=== PATIENT | male | born 1985 | race Caucasian/White ===

== ENCOUNTER 2017-01-15 21:16 | Emergency (ER) | payer MEDICAID, OTHER ==
[2017-01-15 21:28] VITALS: BP 160/107
[2017-01-15] MEDS ORDERED: Alum Hydrox/Mag Hydrox/Simeth 30 ML, Lidocaine 2% 15 ML PO ONE ×2 (21:57)
--- NOTE | 2017-01-15 22:05 | EDM.PDOC ---
ED HPI GENERAL MEDICAL PROBLEM - General Chief Complaint: Chest Pain Stated Complaint: [facility] Time Seen by Provider: 01/15/17 21:47 Source of Information: Reports: Patient History Limitations: Reports: No Limitations - History of Present Illness INITIAL COMMENTS - FREE TEXT/NARRATIVE: patient is a 31-year-old male who presents to the ED complaining of chest pain located just right of the lower sternal border. Patient states this pain has been coming about on and off for the past few months. States it waxes and wanes in intensity with really no clear provocation. States today when he was getting into the ambulance experience extreme pain rated 8 out of 10 to this location that took his breath away. Has noted shortness of breath with exertion as of recent. Pain is described as achy/pressure/sharp sensation rated 3 out of 10 with admission to the ED. He did take ibuprofen along with aspirin 324 mg. EKG was obtained indicating questionable inferior ischemia.Patient took one nitroglycerin spray that did not alleviate the symptoms. Of note patient has pain between his shoulder blades that has been present for the past few months. States he has has a history of back issues and relates the discomfort to that. Patient is mildly nauseated with no emesis. Denies presyncope or syncopal episode, diaphoresis, acid reflux, abdominal pain, leg swelling, or hx of DVT/ PE. He has no past medical history is currently taking no medications. Surgical history noncontributory. Patient does not smoke or utilize recreational drugs. Consumes alcohol on a social basis. He has first-degree relatives with heart disease. 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 Denies: Wheezing, Cough, Sputum Cardiovascular: Reports: Chest Pain (substernal chest pain). Denies: Dyspnea on Exertion, Palpitations, Syncope GI/Abdominal: Reports: Nausea. Denies: Abdominal Pain, Constipation, Diarrhea, Vomiting Musculoskeletal: Reports: Back Pain (between the shoulder blades). Denies: Leg Pain Neurological: Reports: Dizziness (intermittent) Psychiatric: Reports: Anxiety ED EXAM, GENERAL - Physical Exam Exam: See Below Exam Limited By: No Limitations General Appearance: Alert, WD/WN, Anxious Ears: Hearing Grossly Normal Nose: Normal Inspection Throat/Mouth: Normal Voice, No Airway Compromise Head: Atraumatic, Normocephalic Neck: Normal Inspection, Supple, Full Range of Motion Respiratory/Chest: No Respiratory Distress, Lungs Clear, Normal Breath Sounds, No Accessory Muscle Use, Chest Non-Tender Cardiovascular: Normal Peripheral Pulses, Regular Rate, Rhythm, No Murmur Peripheral Pulses: 2+: Radial (L) GI/Abdominal: Normal Bowel Sounds, Soft, Non-Tender, No Organomegaly, No Distention Back Exam: Normal Inspection. No: Paraspinal Tenderness, Vertebral Tenderness Extremities: Normal Inspection, Normal Range of Motion, Non-Tender Neurological: Alert, Oriented, CN II-XII Intact, Normal Cognition, No Motor/ Sensory Deficits Psychiatric: Normal Affect, Normal Mood Skin Exam: Warm, Dry, Intact, Normal Color Course - Vital Signs Last Recorded V/S: Last Vital Signs Temp 99.4 F 01/15/17 21:19 Pulse 101 H 01/15/17 21:19 Resp 17 01/15/17 21:19 BP 160/107 H 01/15/17 21:19 Pulse Ox 96 01/15/17 21:19 - Orders/Labs/Meds Orders: Active Orders 24 hr Category Date Time Status EKG Documentation Completion [RC] STAT Care 01/15/17 21:45 Active Labs: Laboratory Tests 01/15/17 01/15/17 01/15/17 Range/Units 21:37 21:37 21:57 WBC 11.67 H (4.23-9.07) K/mm3 RBC 5.24 (4.63-6.08) M/mm3 Hgb 15.4 (13.7-17.5) gm/L Hct 44.6 (40.1-51.0) % MCV 85.1 (79.0-92.2) fl MCH 29.4 (25.7-32.2) pg MCHC 34.5 (32.2-35.5) g/dl RDW Std Deviation 41.2 (35.1-43.9) fL Plt Count 345 H (163-337) K/mm3 MPV 10.3 (9.4-12.3) fl Neut % (Auto) 67.4 (34.0-67.9) % Lymph % (Auto) 23.7 (21.8-53.1) % [place] % (Auto) 6.9 (5.3-12.2) % Eos % (Auto) 1.1 (0.8-7.0) Baso % (Auto) 0.6 (0.1-1.2) % Neut # (Auto) 7.86 H (1.78-5.38) K/mm3 Lymph # (Auto) 2.77 (1.32-3.57) K/mm3 [place] # (Auto) 0.80 (0.30-0.82) K/mm3 Eos # (Auto) 0.13 (0.04-0.54) K/mm3 Baso # (Auto) 0.07 (0.01-0.08) K/mm3 D-Dimer, Quantitative (0.19-0.59) mg/L Sodium 139 (136-145) mEq/L Potassium 3.6 (3.5-5.1) mEq/L Chloride 103 (98-107) mEq/L Carbon Dioxide 27 (21-32) mEq/L Anion Gap 12.6 (5-15) BUN 12 (7-18) mg/dL Creatinine 1.1 (0.7-1.3) mg/dL Est Cr Clr Drug Dosing 106.80 mL/min Estimated GFR (MDRD) > 60 (>60) mL/min BUN/Creatinine Ratio 10.9 L (14-18) Glucose 113 H (74-106) mg/dL Calcium 9.4 (8.5-10.1) mg/dL Total Bilirubin 0.4 (0.2-1.0) mg/dL AST 20 (15-37) U/L ALT 42 (16-63) U/L Alkaline Phosphatase 97 (46-116) U/L Troponin I < 0.017 (0.00-0.056) ng/mL C-Reactive Protein 1.1 H* (<1.0) mg/dL Total Protein 7.8 (6.4-8.2) g/dl Albumin 4.2 (3.4-5.0) g/dl Globulin 3.6 gm/dL Albumin/Globulin Ratio 1.2 (1-2) /11/26 Range/Units 22:19 WBC (4.23-9.07) K/mm3 RBC (4.63-6.08) M/mm3 Hgb (13.7-17.5) gm/L Hct (40.1-51.0) % MCV (79.0-92.2) fl MCH (25.7-32.2) pg MCHC (32.2-35.5) g/dl RDW Std Deviation (35.1-43.9) fL Plt Count (163-337) K/mm3 MPV (9.4-12.3) fl Neut % (Auto) (34.0-67.9) % Lymph % (Auto) (21.8-53.1) % [place] % (Auto) (5.3-12.2) % Eos % (Auto) (0.8-7.0) Baso % (Auto) (0.1-1.2) % Neut # (Auto) (1.78-5.38) K/mm3 Lymph # (Auto) (1.32-3.57) K/mm3 [place] # (Auto) (0.30-0.82) K/mm3 Eos # (Auto) (0.04-0.54) K/mm3 Baso # (Auto) (0.01-0.08) K/mm3 D-Dimer, Quantitative < 0.19 L (0.19-0.59) mg/L Sodium (136-145) mEq/L Potassium (3.5-5.1) mEq/L Chloride (98-107) mEq/L Carbon Dioxide (21-32) mEq/L Anion Gap (5-15) BUN (7-18) mg/dL Creatinine (0.7-1.3) mg/dL Est Cr Clr Drug Dosing mL/min Estimated GFR (MDRD) (>60) mL/min BUN/Creatinine Ratio (14-18) Glucose (74-106) mg/dL Calcium (8.5-10.1) mg/dL Total Bilirubin (0.2-1.0) mg/dL AST (15-37) U/L ALT (16-63) U/L Alkaline Phosphatase (46-116) U/L Troponin I (0.00-0.056) ng/mL C-Reactive Protein (<1.0) mg/dL Total Protein (6.4-8.2) g/dl Albumin (3.4-5.0) g/dl Globulin gm/dL Albumin/Globulin Ratio (1-2) Meds: Medications Discontinued Medications Generic Name Dose Route Start Last Admin Trade Name Freq PRN Reason Stop Dose Admin Al Hydroxide/Mg Hydroxide 30 0 ml 01/15/17 21:57 01/15/17 22:05 ml/ Lidocaine HCl 15 ml PO 01/15/17 21:58 45 ml ONETIME ONE Administration - Re-Assessments/Exams Free Text/Narrative Re-Assessment/Exam: IV established. Ordered GI cocktail. initial labs and studies include CBC, chem 14, d-dimer, troponin, and chest x-ray one view. 01/15/17 22:04 EKG sinus rhythm at a rate is 82 with normal P axis. No acute ST changes noted. Patient had minimal relief with the GI cocktail. CXR revealed cardiomegaly with possible pericardial effusion. 01/15/17 22:43 Obtained bedside ultrasound of the heart to evaluate for pericardial effusion by Dr. Turner. Patient had no signs of pericardial effusion present. 01/15/17 22:46 Labs reviewed: White blood cell count 11.67, hemoglobin 17.4, platelet count 345, sodium 139, potassium 3.6, creatinine 1.1, glucose 113, CRP 1.1, troponin < 0.017, and d-dimer was within normal limits. Discomfort has minimized. He is ready to be discharged home. Will discharge patient home with instructions as documented for atypical chest pain. Departure - Departure Time of Disposition: 22:47 Disposition: Home, Self-Care 01 Condition: Good Clinical Impression: Atypical chest pain Instructions: Nonspecific Chest Pain, [id number] Referrals: Jaxon Ham [Physician] - Forms: ED Department Discharge, ED Return to Work/School Form Additional Instructions: Unclear etiology of current complaint. Troponin, d-dimer, and EKG did not elicit any concerning findings. CRP which is a nonspecific inflammatory marker was mildly elevated. Will have you take ibuprofen 600mg every 6 hours for the next 2 wks to see if this resolves any discomfort. Suggest taking ibuprofen with food and drink plenty of water. Will have you take prilosec 20mg 1/2 hr prior to breakfast everyday while taking the ibuprofen. Followup with Dr. Lopez in 1 to 2 wks. Return to the E.D. for any new or worsening symptoms. - My Orders Last 24 Hours: My Active Orders 01/15/17 21:45 EKG Documentation Completion [RC] STAT - Assessment/Plan Last 24 Hours: My Active Orders 01/15/17 21:45 EKG Documentation Completion [RC] STAT
--- NOTE | 2017-01-16 08:38 | CR ---
Chest: Portable view of the chest was obtained. Comparison: No previous study. Heart size and mediastinum are normal. Lungs are clear. Bony structures are grossly intact. Impression: 1. Nothing acute is identified on portable chest x-ray. Diagnostic code #1.
== END 2017-01-15 23:03 | disposition home or self-care (01) ==
LOC: JD.ED 21:16
DX: R07.89 Other chest pain (principal)
CPT/HCPCS: 36415; 71010; 80053; 84484; 85025; 85379; 86140; 93005; 99285; A9270; 99284

== ENCOUNTER 2017-07-29 22:41 | Emergency (ER) | payer OTHER ==
--- NOTE | 2017-07-29 23:07 | EDM.PDOC ---
ED HPI GENERAL MEDICAL PROBLEM - General Chief Complaint: Chest Pain Stated Complaint: [facility] Time Seen by Provider: 07/29/17 22:50 Source of Information: Reports: Patient History Limitations: Reports: No Limitations - History of Present Illness INITIAL COMMENTS - FREE TEXT/NARRATIVE: The patient states that he developed left-sided chest pain, crampy and pressure in character, around 19:00 this evening, while sitting. It came on gradually. It has been constant. It is more of a discomfort than a pain. He feels better if he is sitting, worse if he is active. He has associated dyspnea, nausea, and significant anxiety, but no diaphoresis. He states that he has had similar discomfort, perhaps 20 times over the past 2 years. He states he underwent a Cardiolite stress test around 3 months ago, and believes that he failed the test, but his Public Works Technician, Dr. Bang, felt that the results were erroneous, and recommended that the patient lose weight (according to the patient). The patient did not undergo a coronary angiogram. The patient does not have a PCP. Chest Pain Score (Numeric/FACES): 3 - Related Data Allergies Allergy/AdvReac Type Severity Reaction Status Date / Time No Known Allergies Allergy Verified 07/29/17 22:45 Home Meds: Home Meds . 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) - Past Surgical History Head Surgeries/Procedures: Reports: Other (See Below) (Excision of fibrous dysplasia tumor, left frontal sinus, Jul 2006, at [place]) HEENT Surgical History: Reports: Oral Surgery ([place] teeth extraction) Musculoskeletal Surgical History: Reports: Other (See Below) (Right hand pinning Mar 2006) Social & Family History - Tobacco Use Smoking Status *Q: Former Smoker Years of Tobacco use: 6 Packs/Tins Daily: 1.5 Month Tobacco Last Used: Quit 2010 Second Hand Smoke Exposure: No - Caffeine Use Caffeine Use: Reports: Coffee - Alcohol Use Alcohol Use History: Yes Alcohol Use Frequency: Socially - Recreational Drug Use Recreational Drug Use: No - Living Situation & Occupation Living situation: Reports: Single, with Family (Nephew) Occupation: Employed ([employer]) ED ROS GENERAL - Review of Systems Review Of Systems: ROS reveals no pertinent complaints other than HPI. ED EXAM, GENERAL - Physical Exam Exam: See Below Exam Limited By: No Limitations General Appearance: Alert, WD/WN, Anxious Eye Exam: Bilateral Eye: Normal Inspection Ears: Normal External Exam, Hearing Grossly Normal Nose: Normal Inspection, No Blood Throat/Mouth: Normal Inspection, Normal Lips, Normal Voice, No Airway Compromise Head: Atraumatic, Normocephalic Neck: Normal Inspection, Full Range of Motion Respiratory/Chest: No Respiratory Distress, Lungs Clear, Normal Breath Sounds, No Accessory Muscle Use, Chest Non-Tender (including to area of pain) Cardiovascular: Normal Peripheral Pulses, No Edema, No Gallop, No JVD, No Murmur , No Rub, Tachycardia (regular) Peripheral Pulses: 4+: Radial (L), Radial (R) GI/Abdominal: Normal Bowel Sounds, Soft, Non-Tender, No Organomegaly, No Distention, No Abnormal Bruit, No Mass, Other (Obese) (Male) Exam: Deferred Rectal (Males) Exam: Deferred Back Exam: Normal Inspection, Full Range of Motion, NT Extremities: Normal Inspection, Normal Range of Motion, No Pedal Edema, Normal Capillary Refill Neurological: Alert, Oriented, Normal Cognition, No Motor/Sensory Deficits Psychiatric: Anxious Skin Exam: Warm, Dry, Intact, Normal Color, No Rash EKG INTERPRETATION EKG Date: 07/29/17 Time: 22:44 Rhythm: Other (Sinus tachycardia) Rate (Beats/Min): 100 Stem: Normal P-Wave: Present QRS: Normal ST-T: Depressed (Posterolateral) QT: Normal Comparison: No Change (01/15/2017) Course - Vital Signs Last Recorded V/S: Last Vital Signs Temp 36.8 C 07/29/17 22:42 Pulse 85 07/30/17 02:27 Resp 18 07/30/17 02:27 BP 148/88 H 07/30/17 02:27 Pulse Ox 98 07/30/17 02:27 - Orders/Labs/Meds Orders: Active Orders 24 hr Category Date Time Status EKG Documentation Completion [RC] ASDIRECTED Care 07/29/17 22:53 Active EKG Documentation Completion [RC] ASDIRECTED Care 07/30/17 01:35 Active Chest 1V Frontal [CR] Stat Exams 07/29/17 22:52 Taken EKG 12 Lead [EK] Stat Ther 07/29/17 22:53 Ordered EKG 12 Lead [EK] Stat Ther 07/30/17 01:35 Ordered Labs: Laboratory Tests 07/29/17 07/29/17 07/29/17 Range/Units 22:54 22:54 22:54 WBC 11.91 H (4.23-9.07) K/mm3 RBC 5.23 (4.63-6.08) M/mm3 Hgb 14.9 (13.7-17.5) gm/L Hct 44.2 (40.1-51.0) % MCV 84.5 (79.0-92.2) fl MCH 28.5 (25.7-32.2) pg MCHC 33.7 (32.2-35.5) g/dl RDW Std Deviation 41.1 (35.1-43.9) fL Plt Count 355 H (163-337) K/mm3 MPV 9.9 (9.4-12.3) fl Neut % (Auto) 64.6 (34.0-67.9) % Lymph % (Auto) 24.7 (21.8-53.1) % [place] % (Auto) 8.3 (5.3-12.2) % Eos % (Auto) 1.6 (0.8-7.0) Baso % (Auto) 0.6 (0.1-1.2) % Neut # (Auto) 7.70 H (1.78-5.38) K/mm3 Lymph # (Auto) 2.94 (1.32-3.57) K/mm3 [place] # (Auto) 0.99 H (0.30-0.82) K/mm3 Eos # (Auto) 0.19 (0.04-0.54) K/mm3 Baso # (Auto) 0.07 (0.01-0.08) K/mm3 PT 10.8 (8.0-13.0) SECONDS INR 0.99 APTT 26 (22-36) SECONDS D-Dimer, Quantitative < 0.19 L (0.19-0.59) mg/L Sodium 140 (136-145) mEq/L Potassium 3.4 L (3.5-5.1) mEq/L Chloride 105 (98-107) mEq/L Carbon Dioxide 25 (21-32) mEq/L Anion Gap 13.4 (5-15) BUN 14 (7-18) mg/dL Creatinine 1.2 (0.7-1.3) mg/dL Est Cr Clr Drug Dosing 97.90 mL/min Estimated GFR (MDRD) > 60 (>60) mL/min BUN/Creatinine Ratio 11.7 L (14-18) Glucose 105 (74-106) mg/dL Calcium 8.7 (8.5-10.1) mg/dL Total Bilirubin 0.2 (0.2-1.0) mg/dL AST 31 (15-37) U/L ALT 71 H (16-63) U/L Alkaline Phosphatase 110 (46-116) U/L Troponin I < 0.017 (0.00-0.056) ng/mL NT-Pro-B Natriuret Pep (0-125) pg/mL Total Protein 7.3 (6.4-8.2) g/dl Albumin 3.7 (3.4-5.0) g/dl Globulin 3.6 gm/dL Albumin/Globulin Ratio 1.0 (1-2) 07/29/17 Range/Units 22:54 WBC (4.23-9.07) K/mm3 RBC (4.63-6.08) M/mm3 Hgb (13.7-17.5) gm/L Hct (40.1-51.0) % MCV (79.0-92.2) fl MCH (25.7-32.2) pg MCHC (32.2-35.5) g/dl RDW Std Deviation (35.1-43.9) fL Plt Count (163-337) K/mm3 MPV (9.4-12.3) fl Neut % (Auto) (34.0-67.9) % Lymph % (Auto) (21.8-53.1) % [place] % (Auto) (5.3-12.2) % Eos % (Auto) (0.8-7.0) Baso % (Auto) (0.1-1.2) % Neut # (Auto) (1.78-5.38) K/mm3 Lymph # (Auto) (1.32-3.57) K/mm3 [place] # (Auto) (0.30-0.82) K/mm3 Eos # (Auto) (0.04-0.54) K/mm3 Baso # (Auto) (0.01-0.08) K/mm3 PT (8.0-13.0) SECONDS INR APTT (22-36) SECONDS D-Dimer, Quantitative (0.19-0.59) mg/L Sodium (136-145) mEq/L Potassium (3.5-5.1) mEq/L Chloride (98-107) mEq/L Carbon Dioxide (21-32) mEq/L Anion Gap (5-15) BUN (7-18) mg/dL Creatinine (0.7-1.3) mg/dL Est Cr Clr Drug Dosing mL/min Estimated GFR (MDRD) (>60) mL/min BUN/Creatinine Ratio (14-18) Glucose (74-106) mg/dL Calcium (8.5-10.1) mg/dL Total Bilirubin (0.2-1.0) mg/dL AST (15-37) U/L ALT (16-63) U/L Alkaline Phosphatase (46-116) U/L Troponin I (0.00-0.056) ng/mL NT-Pro-B Natriuret Pep 14 (0-125) pg/mL Total Protein (6.4-8.2) g/dl Albumin (3.4-5.0) g/dl Globulin gm/dL Albumin/Globulin Ratio (1-2) - Re-Assessments/Exams Free Text/Narrative Re-Assessment/Exam: 07/29/17 23:16 Portable chest radiograph appears to be grossly normal. Cardiac silhouette is within normal limits. No pulmonary vascular congestion. No pleural effusions. No focal infiltrate. No pneumothorax. Formal read per the Radiologist pending. 07/30/17 02:12 The patient complained of increasing chest pain. A repeat ECG was obtained at 01 :30, although shortly afterwards, the patient's chest pain subsided. The repeat ECG demonstrates a normal sinus rhythm at [address] depressions noted on the initial ECG remain unchanged. No LAD or LVH. 07/30/17 02:16 Test results discussed with the patient. Tonight's workup is unremarkable. I suspect that the patient's chest pain is related to anxiety, however, I think that cardiac etiology needs to be definitively ruled out, therefore I am recommending that he follow-up with his leather goods assembler, Dr. Bang. If Dr. Bang's evaluation is negative, then I am recommending that the patient follow-up with a physician at [facility] (his insurance is through [facility]) to discuss treatment options for anxiety. The patient agrees with this plan. Departure - Departure Time of Disposition: 02:20 Disposition: Home, Self-Care 01 Condition: Good Clinical Impression: Chest pain of uncertain etiology Instructions: Nonspecific Chest Pain, [id number] Referrals: PCP,Joshua [Primary Care Provider] - Ender Bang MD [Ordering Only Provider] - Forms: ED Department Discharge Additional Instructions: You were seen in the emergency room for left-sided chest pain, shortness of breath, nausea, and anxiety. Workup in the ER included blood work, two ECGs, and a chest x-ray. Your entire workup was unremarkable. Your ECGs are not totally normal, but they are unchanged from an older ECG. The cause of your chest pain is MOST LIKELY due to anxiety, however, a cardiac cause cannot be completely ruled out. We recommend that you follow-up with your Public Works Technician, Dr. Bang, for further evaluation. If Dr. Bang finds no cardiac problems, we recommend that you follow-up with a PCP at [facility] to discuss treatment options for anxiety. If any other problems, please do not hesitate to return to the ER. - My Orders Last 24 Hours: My Active Orders 07/29/17 22:52 Chest 1V Frontal [CR] Stat 07/29/17 22:53 EKG Documentation Completion [RC] ASDIRECTED EKG 12 Lead [EK] Stat 07/30/17 01:35 EKG Documentation Completion [RC] ASDIRECTED EKG 12 Lead [EK] Stat - Assessment/Plan Last 24 Hours: My Active Orders 07/29/17 22:52 Chest 1V Frontal [CR] Stat 07/29/17 22:53 EKG Documentation Completion [RC] ASDIRECTED EKG 12 Lead [EK] Stat 07/30/17 01:35 EKG Documentation Completion [RC] ASDIRECTED EKG 12 Lead [EK] Stat
[2017-07-30 02:29] VITALS: BP 148/88
--- NOTE | 2017-07-30 13:01 | CR ---
Chest: Portable view of the chest was obtained. Comparison: Prior chest x-ray of 01/15/17. Heart size and mediastinum are normal. Lungs are clear. Bony structures are grossly intact. Impression: 1. Nothing acute is identified on portable chest x-ray. Diagnostic code #1
== END 2017-07-30 02:27 | disposition home or self-care (01) ==
LOC: JD.ED 22:41
DX: R07.89 Other chest pain (principal); E66.9 Obesity, unspecified; Z68.41 Body mass index [BMI] 40.0-44.9, adult; Z87.891 Personal history of nicotine dependence
CPT/HCPCS: 36415; 71045; 71045-26; 80053; 83880; 84484; 85025; 85379; 85610; 85730; 93005; 99285-25

== ENCOUNTER 2018-10-23 14:50 | Emergency (ER) | payer BC, OTHER ==
[2018-10-23] MEDS ORDERED: Alum Hydrox/Mag Hydrox/Simeth 30 ML, Lidocaine 2% 15 ML PO ONE ×2 (15:30)
[2018-10-23] MEDS ORDERED: Hyoscyamine 0.125 MG Tab.SL SL ONE (15:32)
[2018-10-23] MEDS: Sodium Chloride 0.9% 10 ML Syringe FLUSH PRN ×2 (15:35→16:56)
--- NOTE | 2018-10-23 16:42 | EDM.PDOC ---
ED HPI GENERAL MEDICAL PROBLEM - General Chief Complaint: Abdominal Pain Stated Complaint: ABDOMINAL PAIN Time Seen by Provider: 10/23/18 15:05 Source of Information: Reports: Patient History Limitations: Reports: No Limitations - History of Present Illness INITIAL COMMENTS - FREE TEXT/NARRATIVE: 33 y/o male presents to ER with cc sudden abdominal pain after eating about 2 hours ago. He reports the pain is a sharp burning pain that starts at the epigastric region and radiates into his lower abdomen. He reports nothing makes it better or worse. He denies chest pain or SOB. He reports he has been evaluated for Celiac disease which was negative and recently had a colonoscopy and EDG or abdominal pain. He reports this pain is different from other pains he has had. He states he may have IBS but it is not confirmed. He denies any fever or chills, no nausea or vomiting. He is accompanied by his . Onset: Today, Sudden Onset Date: 10/23/18 Onset Time: 12:00 Duration: Getting Worse Location: Reports: Abdomen Quality: Reports: Burning Improves with: Reports: None Worsens with: Reports: None Associated Symptoms: Reports: No Other Symptoms. Denies: Chest Pain, Cough, Fever/Chills, Nausea/Vomiting, Shortness of Breath Middle Abdomen Pain Score (Numeric/FACES): 6 - Related Data Allergies Allergy/AdvReac Type Severity Reaction Status Date / Time No Known Allergies Allergy Verified 10/23/18 14:59 Home Meds: Home Meds Acetaminophen/Caffeine [Excedrin Tension Headache Cplt] 65 - 250 mg PO Q4H PRN 10/23/18 [History] Amitriptyline [Elavil] 10 mg PO BEDTIME 10/23/18 [History] Aspirin [Halfprin] 81 mg PO DAILY 10/23/18 [History] Fish Oil/Borage/Flax/Om3,6,9#1 [Hamlin 3-6-9 1,200 mg Softgel] 1,200 mg PO DAILY 10/23/18 [History] Hyoscyamine [Hyomax-SL] 0.125 mg SL Q4H PRN 5 Days #20 tab.sl 10/23/18 [Rx] Naproxen [Naprosyn] 500 mg PO BID PRN 10/23/18 [History] PARoxetine HCl [Paxil] 30 mg PO DAILY 10/23/18 [History] Past Medical History HEENT History: Reports: Impaired Vision Other HEENT History: wears eyeglasses. Cardiovascular History: Reports: Hypertension, Other (See Below) Other Cardiovascular History: stress-induced ischemia Gastrointestinal History: Reports: Chronic Constipation, Chronic Diarrhea, Other (See Below) Other Gastrointestinal History: elevated CRP. 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 - Past Surgical History Head Surgeries/Procedures: Reports: Other (See Below) HEENT Surgical History: Reports: Oral Surgery, Other (See Below) Other HEENT Surgeries/Procedures: L) frontal sinus removed. Skull surgery. GI Surgical History: Reports: Colonoscopy, EGD Musculoskeletal Surgical History: Reports: Other (See Below) Other Musculoskeletal Surgeries/Procedures:: pin to R) hand. Social & Family History - Tobacco Use Smoking Status *Q: Never Smoker Second Hand Smoke Exposure: No - Caffeine Use Caffeine Use: Reports: Coffee, Energy Drinks, Soda, Tea - Recreational Drug Use Recreational Drug Use: No - Living Situation & Occupation Living situation: Reports: Single, with Family (Nephew) Occupation: Employed (EMT) ED ROS GENERAL - Review of Systems Review Of Systems: See Below Constitutional: Denies: Fever, Chills HEENT: Reports: Glasses Respiratory: Denies: Shortness of Breath Cardiovascular: Denies: Chest Pain Endocrine: Reports: No Symptoms GI/Abdominal: Reports: Abdominal Pain. Denies: Constipation, Diarrhea, Difficulty Swallowing, Distension, Nausea, Vomiting : Reports: No Symptoms Musculoskeletal: Reports: No Symptoms Skin: Reports: No Symptoms Neurological: Reports: No Symptoms Psychiatric: Reports: No Symptoms Hematologic/Lymphatic: Reports: No Symptoms Immunologic: Reports: No Symptoms ED EXAM, GI/ABD - Physical Exam Exam: See Below Exam Limited By: No Limitations General Appearance: Alert, WD/WN, No Apparent Distress Throat/Mouth: Normal Inspection, Normal Lips, Normal Teeth, Normal Gums, Normal Oropharynx, Normal Voice, No Airway Compromise Neck: Normal Inspection, Supple, Non-Tender, Full Range of Motion Respiratory/Chest: No Respiratory Distress, Lungs Clear, Normal Breath Sounds, No Accessory Muscle Use, Chest Non-Tender Cardiovascular: Normal Peripheral Pulses, Regular Rate, Rhythm, No Edema, No Gallop, No JVD, No Murmur, No Rub GI/Abdominal Exam: Normal Bowel Sounds, Soft, No Organomegaly, No Distention, No Abnormal Bruit, No Mass, Pelvis Stable, Tender. No: Rigid, Rebound, Mass Back Exam: Normal Inspection, Full Range of Motion Extremities: Normal Inspection, Normal Range of Motion, Non-Tender, No Pedal Edema, Normal Capillary Refill Neurological: Alert, Oriented, CN II-XII Intact, Normal Cognition, Normal Gait Psychiatric: Normal Affect, Normal Mood Skin Exam: Warm, Dry, Intact, Normal Color, No Rash Lymphatic: No Adenopathy Course - Vital Signs Last Recorded V/S: Last Vital Signs Temp 98.1 F 10/23/18 14:55 Pulse 90 10/23/18 14:55 Resp 20 10/23/18 14:55 BP 131/81 10/23/18 14:55 Pulse Ox 98 10/23/18 14:55 - Orders/Labs/Meds Orders: Active Orders 24 hr Category Date Time Status Sodium Chloride 0.9% [Saline Flush] Med 10/23/18 15:30 Active 10 ml FLUSH ASDIRECTED PRN Saline Lock Insert [OM.PC] Routine Oth 10/23/18 15:30 Ordered Medication Orders Sodium Chloride (Saline Flush) 10 ml FLUSH ASDIRECTED PRN PRN Reason: Keep Vein Open Last Admin: 10/23/18 16:56 Dose: 10 ml Admin: 10/23/18 15:35 Dose: 10 ml Labs: Laboratory Tests 10/23/18 10/23/18 Range/Units 15:30 15:30 WBC 10.28 H (4.23-9.07) K/mm3 RBC 5.43 (4.63-6.08) M/mm3 Hgb 15.4 (13.7-17.5) gm/L Hct 46.6 (40.1-51.0) % MCV 85.8 (79.0-92.2) fl MCH 28.4 (25.7-32.2) pg MCHC 33.0 (32.2-35.5) g/dl RDW Std Deviation 43.3 (35.1-43.9) fL Plt Count 326 (163-337) K/mm3 MPV 10.1 (9.4-12.3) fl Neut % (Auto) 71.5 H (34.0-67.9) % Lymph % (Auto) 17.4 L (21.8-53.1) % Rabun % (Auto) 8.1 (5.3-12.2) % Eos % (Auto) 2.2 (0.8-7.0) Baso % (Auto) 0.6 (0.1-1.2) % Neut # (Auto) 7.35 H (1.78-5.38) K/mm3 Lymph # (Auto) 1.79 (1.32-3.57) K/mm3 Rabun # (Auto) 0.83 H (0.30-0.82) K/mm3 Eos # (Auto) 0.23 (0.04-0.54) K/mm3 Baso # (Auto) 0.06 (0.01-0.08) K/mm3 Sodium 138 (136-145) mEq/L Potassium 3.8 (3.5-5.1) mEq/L Chloride 101 (98-107) mEq/L Carbon Dioxide 29 (21-32) mEq/L Anion Gap 11.8 (5-15) BUN 10 (7-18) mg/dL Creatinine 0.8 (0.7-1.3) mg/dL Est Cr Clr Drug Dosing 144.15 mL/min Estimated GFR (MDRD) > 60 (>60) mL/min BUN/Creatinine Ratio 12.5 L (14-18) Glucose 97 (74-106) mg/dL Calcium 9.6 (8.5-10.1) mg/dL Total Bilirubin 0.3 (0.2-1.0) mg/dL AST 23 (15-37) U/L ALT 51 (16-63) U/L Alkaline Phosphatase 95 (46-116) U/L Total Protein 7.7 (6.4-8.2) g/dl Albumin 3.8 (3.4-5.0) g/dl Globulin 3.9 gm/dL Albumin/Globulin Ratio 1.0 (1-2) Lipase 131 (73-393) U/L Meds: Medications Generic Name Dose Route Start Last Admin Trade Name Freq PRN Reason Stop Dose Admin Sodium Chloride 10 ml 10/23/18 15:30 10/23/18 16:56 Saline Flush FLUSH 10 ml ASDIRECTED PRN Administration Keep Vein Open Discontinued Medications Generic Name Dose Route Start Last Admin Trade Name Gregor PRN Reason Stop Dose Admin Al Hydroxide/Mg Hydroxide 30 0 ml 10/23/18 15:30 10/23/18 15:35 ml/ Lidocaine HCl 15 ml PO 10/23/18 15:31 45 ml ONETIME ONE Administration Diatrizoate Meglum/Diatrizoate Sod 60 ml 10/23/18 16:43 10/23/18 16:52 Gastrografin 37% PO 10/23/18 16:44 60 ml ONETIME ONE Administration Hyoscyamine 0.125 mg 10/23/18 15:32 10/23/18 15:35 Hyomax-Sl SL 10/23/18 15:33 0.125 mg ONETIME ONE Administration Iohexol 75 ml 10/23/18 16:44 10/23/18 16:52 Omnipaque IVPUSH 10/23/18 16:45 75 ml ONETIME ONE Administration Ondansetron HCl 4 mg 10/23/18 17:40 Zofran Odt PO 10/23/18 17:41 ONETIME ONE - Re-Assessments/Exams Free Text/Narrative Re-Assessment/Exam: 10/23/18 17:00 WBC 10.28 RBC 5.46 H & H 15.4/46.6 NA+ 138 k+ 3.8 CHOL 101 CO2 29 BUN 10 CREATINE 0.8 LIPASE 138 AST 23 ALT 57. He denies any pain at this time. 10/23/18 17:43 CT abdomen reveals bowel wall thickening within several proximal jejunal loops with are suspicious for mild enteritis. I will discharge home with instructions to follow up with his instrument lens grinder. I will discharge home with hyoscyamine 0.125 PRN abdominal pain. Instructed to return to the ER for any new or acute worsening symptoms. Patient verbalized understanding and is comfortable with plan for discharge. He is stable at time of discharge. Departure - Departure Time of Disposition: 17:48 Disposition: Home, Self-Care 01 Condition: Good Clinical Impression: Gastroenteritis - Discharge Information *PRESCRIPTION DRUG MONITORING PROGRAM REVIEWED*: Not Applicable *COPY OF PRESCRIPTION DRUG MONITORING REPORT IN PATIENT [place]: Not Applicable Prescriptions: Hyoscyamine [Hyomax-SL] 0.125 mg SL Q4H PRN 5 Days #20 tab.sl PRN Reason: Abdominal Pain Instructions: Viral Gastroenteritis, Adult, [id number] Referrals: Christopher Huang MD [Primary Care Provider] - Forms: ED Department Discharge Additional Instructions: You have been diagnosis with gastroenteritis. This is possibly viral in nature and does not require antibiotic. I recommend you follow a bland diet and advance as tolerated. You have been prescribed Hyoscyamine for abdominal pain. Take as needed. Follow up with your instrument lens grinder. Return to the ER for any new or acute worsening symptoms. - My Orders Last 24 Hours: My Active Orders 10/23/18 15:30 Sodium Chloride 0.9% [Saline Flush] 10 ml FLUSH ASDIRECTED PRN Saline Lock Insert [OM.PC] Routine - Assessment/Plan Last 24 Hours: My Active Orders 10/23/18 15:30 Sodium Chloride 0.9% [Saline Flush] 10 ml FLUSH ASDIRECTED PRN Saline Lock Insert [OM.PC] Routine
[2018-10-23] MEDS ORDERED: Diatrizoate Meglumine/Diatrizoate Sodium 37% 120 ML Bottle PO ONE (16:43)
[2018-10-23] MEDS ORDERED: Iohexol 350 MG/ML 75 ML Bottle IVPUSH ONE (16:44)
--- NOTE | 2018-10-23 17:24 | CT ---
CT abdomen and pelvis Technique: Multiple axial sections were obtained from slightly below the dome of the diaphragm inferiorly through the pubic symphysis. Intravenous and oral contrast was utilized. Delayed images were obtained through the bladder. Comparison: No previous abdominal x-rays abdominal study. Findings: Small portion of the visualized lung bases are clear. Visualized liver shows no focal abnormality. Spleen appears within normal limits. Adrenal glands show no nodule. Pancreas is within normal limits. Bowel wall thickening is seen within several proximal jejunal loops. Findings are suspicious for mild enteritis. Appendix is seen and is normal in size. Kidneys show symmetric contrast enhancement without hydronephrosis or mass. Aorta shows no aneurysm. No retroperitoneal adenopathy or mesenteric abnormalities are seen. No pelvic mass or adenopathy is seen. No free fluid or inflammatory change is seen. Delayed images shows contrast within the distal ureters and within the bladder. Bone window settings were reviewed which appears within normal limits for the patient's age. Impression: 1. Bowel wall thickening within several proximal jejunal loops which are suspicious for mild enteritis. 2. No additional abnormality appreciated on CT study of the abdomen and pelvis. Diagnostic code #3
[2018-10-23] MEDS ORDERED: Ondansetron 4 MG Tab.DIS PO ONE (17:40)
[2018-10-23 18:16] VITALS: BP 117/92
== END 2018-10-23 18:05 | disposition home or self-care (01) ==
LOC: JD.ED 14:50
DX: K52.9 Noninfective gastroenteritis and colitis, unspecified (principal); I10 Essential (primary) hypertension; Z79.82 Long term (current) use of aspirin; Z79.899 Other long term (current) drug therapy
CPT/HCPCS: 36415; 74177; 80053; 83690; 85025; 99284; A9270; Q9963; Q9967

== ENCOUNTER 2019-06-05 04:54 | Emergency (ER) | payer BC, OTHER ==
[2019-06-05 05:12] VITALS: BP 157/99; PULSE 84
[2019-06-05] MEDS ORDERED: Orphenadrine 100 MG Tab.ER PO STA (05:36)
[2019-06-05] MEDS ORDERED: Ibuprofen 800 MG Tab PO ONE (05:36)
--- NOTE | 2019-06-05 05:44 | EDM.PDOC ---
ED HPI GENERAL MEDICAL PROBLEM - General Chief Complaint: Neck Problem Stated Complaint: NECK PAIN Time Seen by Provider: 06/05/19 05:19 Source of Information: Reports: Patient History Limitations: Reports: No Limitations - History of Present Illness INITIAL COMMENTS - FREE TEXT/NARRATIVE: Mr. Garrett is a most pleasant 33-year-old man with a past medical history significant for OCD and untreated ADHD, who works as an EMT, who states that he has had some right neck and shoulder pain for the past few weeks, but that it suddenly became significantly worse when he was climbing out of an ambulance around 23:00 last night. No injury to his neck, shoulder, or arm. The patient is unable to turn his head to the right due to pain. He states that he was unable to sleep due to the pain. He denies paresthesia to his right upper extremity. No prior similar symptoms. He states that he took 325 mg of aspirin some time between 23:00 and midnight. The patient states that he occasionally coughs, but he has not had a recent fever, chills, nausea, vomiting, consultation, diarrhea, or urinary symptoms. The patient's PCP is Dr. Christopher Huang. His Orange Grower is Dr. Ender Bang. Right Neck Pain Score (Numeric/FACES): 10 - Related Data Allergies Allergy/AdvReac Type Severity Reaction Status Date / Time No Known Allergies Allergy Verified 06/05/19 05:09 Home Meds: Home Meds Acetaminophen/Caffeine [Excedrin Tension Headache Cplt] 65 - 250 mg PO Q4H PRN 10/23/18 [History] PARoxetine HCl [Paxil] 30 mg PO DAILY 10/23/18 [History] Orphenadrine [Norflex] 1 tab PO Q12H PRN #14 tab.er 06/05/19 [Rx] Past Medical History HEENT History: Reports: Impaired Vision Other HEENT History: wears eyeglasses. Gastrointestinal History: Reports: Other (See Below) Other Gastrointestinal History: elevated CRP. 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, excised Jul 2006 @ [place]), Oral Surgery (wisdom teeth extraction) GI Surgical History: Reports: Colonoscopy, EGD Musculoskeletal Surgical History: Reports: Other (See Below) (Right hand pinning Mar 2006) Social & Family History - Tobacco Use Smoking Status *Q: Former Smoker Tobacco Use Within Last Twelve Months: Smokeless Tobacco (Chews on occasion) Years of Tobacco use: 6 Packs/Tins Daily: 1.5 Month/Year Tobacco Last Used: Quit 2010 - Caffeine Use Caffeine Use: Reports: Coffee, Energy Drinks, Soda, Tea - Alcohol Use Alcohol Use History: Yes Alcohol Use Frequency: Socially - Recreational Drug Use Recreational Drug Use: No - Living Situation & Occupation Living situation: Reports: Single, with Significant Other (Fiance) Occupation: Employed (EMT) ED ROS GENERAL - Review of Systems Review Of Systems: Comprehensive ROS is negative, except as noted in HPI. GI/Abdominal: Reports: Constipation (chronic), Diarrhea (chronic) ED EXAM, UPPER BACK/NECK PAIN - Physical Exam Exam: See Below Exam Limited By: No Limitations General Appearance: Alert, WD/WN, Mild Distress (appears uncomfortable) Eye Exam: Bilateral Eye: EOMI, Normal Inspection Ears Exam: Normal External Exam, Hearing Grossly Normal Nose Exam: Normal Inspection Throat/Mouth Exam: Normal Inspection, Normal Lips, Normal Voice, No Airway Compromise Head Exam: Atraumatic, Normocephalic Neck Exam: Normal Alignment, Limited Range of Motion (turning to right, tilting to right), Muscle Spasm (right neck only), Painful Range of Motion. No: Paraspinous Muscle Tender, Spinous Processes Tender, Tender Midline Course - Vital Signs Last Recorded V/S: Last Vital Signs Temp 36.4 C 06/05/19 05:06 Pulse 84 06/05/19 05:06 Resp 16 06/05/19 05:06 BP 157/99 H 06/05/19 05:06 Pulse Ox 97 06/05/19 05:06 - Orders/Labs/Meds Meds: Medications Discontinued Medications Generic Name Dose Route Start Last Admin Trade Name Freq PRN Reason Stop Dose Admin Ibuprofen 800 mg 06/05/19 05:36 06/05/19 05:43 Motrin PO 06/05/19 05:37 800 mg ONETIME ONE Administration Orphenadrine Citrate 200 mg 06/05/19 05:36 06/05/19 05:43 Norflex PO 06/05/19 05:37 200 mg ONETIME STA Administration - Re-Assessments/Exams Free Text/Narrative Re-Assessment/Exam: 06/05/19 05:38 The patient's right neck pain appears to be entirely musculoskeletal, due to a muscle spasm. I do not suspect cervical radiculopathy. The patient will be given 2 tablets of Norflex; 1 to take now, the other to take this evening, since all pharmacies are closed today. I will submit a prescription for Norflex that the patient can begin tomorrow. He will also be started on ibuprofen 800 mg , and I would like him to take 600 to 800 mg every 8 hours with food. Within the last couple of days, his neck should start feeling better, and he can begin performing range of motion exercises. Departure - Departure Time of Disposition: 05:40 Disposition: Home, Self-Care 01 Condition: Good Clinical Impression: Neck muscle spasm - Discharge Information *PRESCRIPTION DRUG MONITORING PROGRAM REVIEWED*: Not Applicable *COPY OF PRESCRIPTION DRUG MONITORING REPORT IN PATIENT [place]: Not Applicable Prescriptions: Orphenadrine [Norflex] 1 tab PO Q12H PRN #14 tab.er PRN Reason: Muscle Spasm Instructions: Muscle Cramps and Spasms, [id number] Referrals: Christopher Huang MD [Primary Care Provider] - Ender Bang MD [Ordering Only Provider] - Forms: ED Department Discharge Additional Instructions: You were seen in the emergency room after developing right-sided neck pain. Based on your history and physical examination, your neck pain is due to a muscle spasm, not due to a problem with the nerves exiting from your cervical spine. You have been started on the muscle relaxant Norflex, and an extra pill of Norflex has been given to you that you should take tonight. A prescription for Norflex has been sent to the [facility], located in the [employer] store , that you can fill morning. Take one tablet of Norflex every 12 hours , starting morning, 06/06/2019, as prescribed. In addition to Norflex, we recommend that you take [id number] ibuprofen, 3 -4 tablets (600-800 mg) every 8 hours, with food, as needed for discomfort. A heating pad may help with your neck discomfort. Within a couple of days, your neck should start to feel better, and you can begin performing range of motion exercises. If any other problems, please do not hesitate to return to the ER. Sepsis Event Note - Evaluation Sepsis Screening Result: No Definite Risk - Focused Exam Date Exam was Performed: 06/06/19 Time Exam was Performed: 23:36
== END 2019-06-05 05:51 | disposition home or self-care (01) ==
LOC: JD.ED 04:54
DX: M62.838 Other muscle spasm (principal); M54.2 Cervicalgia; Z87.891 Personal history of nicotine dependence; E66.9 Obesity, unspecified; Z68.41 Body mass index [BMI] 40.0-44.9, adult; Z79.899 Other long term (current) drug therapy
CPT/HCPCS: 99283; A9270

== ENCOUNTER 2019-07-09 04:31 | Emergency (ER) | payer OTHER ==
[2019-07-09 04:40] VITALS: BP 159/109; PULSE 90
--- NOTE | 2019-07-09 04:44 | EDM.PDOC ---
ED HPI GENERAL MEDICAL PROBLEM - General Chief Complaint: Skin Complaint Stated Complaint: RASH/FEET HURT Time Seen by Provider: 07/09/19 04:42 Source of Information: Reports: Patient History Limitations: Reports: No Limitations - History of Present Illness INITIAL COMMENTS - FREE TEXT/NARRATIVE: The patient presents with a sore throat and a rash. This all started about 2 weeks ago. He felt like he got hit by a bus and then had a fever and sore throat. He has been dealing with it and then tonight he noticed he had a rash. He also has some pain in his joints. He has a slight cough, congestion and runny nose. Onset: Gradual Duration: Week(s): (2) Location: Reports: Other (throat) Quality: Reports: Sharp Severity: Moderate Improves with: Reports: None Worsens with: Reports: None Associated Symptoms: Reports: Cough, Fever/Chills. Denies: Headaches, Shortness of Breath, Weakness Bilateral Feet Pain Score (Numeric/FACES): 8 - Related Data Allergies Allergy/AdvReac Type Severity Reaction Status Date / Time No Known Allergies Allergy Verified 07/09/19 04:40 Home Meds: Home Meds PARoxetine HCl [Paxil] 30 mg PO DAILY 10/23/18 [History] Dextroamphetamine/Amphetamine [Adderall] 30 mg PO DAILY 07/09/19 [History] Past Medical History HEENT History: Reports: Impaired Vision Other HEENT History: wears eyeglasses. Cardiovascular History: Reports: Hypertension, Other (See Below) Other Cardiovascular History: stress-induced ischemia Gastrointestinal History: Reports: Other (See Below) Other Gastrointestinal History: elevated CRP. 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 - Past Surgical History Head Surgeries/Procedures: Reports: Other (See Below) HEENT Surgical History: Reports: Naso-Sinus Surgery, Oral Surgery GI Surgical History: Reports: Colonoscopy, EGD Musculoskeletal Surgical History: Reports: Other (See Below) Social & Family History - Tobacco Use Smoking Status *Q: Never Smoker - Caffeine Use Caffeine Use: Reports: Coffee, Energy Drinks, Soda, Tea - Recreational Drug Use Recreational Drug Use: No - Living Situation & Occupation Living situation: Reports: Single, with Significant Other (Fiance) Occupation: Employed ([employer]) ED ROS GENERAL - Review of Systems Review Of Systems: See Below Constitutional: Reports: Fever, Chills HEENT: Reports: Throat Pain Respiratory: Reports: Cough. Denies: Shortness of Breath Cardiovascular: Reports: No Symptoms Endocrine: Reports: No Symptoms GI/Abdominal: Reports: No Symptoms : Reports: No Symptoms Musculoskeletal: Reports: No Symptoms Skin: Reports: Rash ED EXAM, SKIN/RASH Exam: See Below Exam Limited By: No Limitations General Appearance: Alert, No Apparent Distress Ears: Normal External Exam Nose: Normal Inspection Throat/Mouth: Other (Erytheema of the oropharynx and tonsils with edema) Head: Atraumatic, Normocephalic Neck: Lymphadenopathy (L), Lymphadenopathy (R) Respiratory/Chest: No Respiratory Distress, Lungs Clear, Normal Breath Sounds Cardiovascular: Regular Rate, Rhythm, No Edema, No Murmur GI/Abdominal: Soft, Non-Tender, No Organomegaly, No Mass Back Exam: Normal Inspection Extremities: Normal Inspection Course - Vital Signs Last Recorded V/S: Last Vital Signs Temp 97.5 F 07/09/19 04:38 Pulse 90 07/09/19 04:38 Resp 15 07/09/19 04:38 BP 159/109 H 07/09/19 04:38 Pulse Ox 100 07/09/19 04:38 - Orders/Labs/Meds Orders: Active Orders 24 hr Category Date Time Status Cardiac Monitoring [RC] . DIRECTED Care 07/09/19 04:48 Active CBC WITH AUTO DIFF [HEME] Stat Lab 07/09/19 05:00 Results STREP SCRN A RAPID W CULT CONF [RM] Stat Lab 07/09/19 04:50 Results Labs: Laboratory Tests 07/09/19 07/09/19 07/09/19 Range/Units 04:50 05:00 05:00 WBC 12.40 H (4.23-9.07) K/mm3 RBC 5.34 (4.63-6.08) M/mm3 Hgb 15.1 (13.7-17.5) gm/dl Hct 45.7 (40.1-51.0) % MCV 85.6 (79.0-92.2) fl MCH 28.3 (25.7-32.2) pg MCHC 33.0 (32.2-35.5) g/dl RDW Std Deviation 42.0 (35.1-43.9) fL Plt Count 429 H D (163-337) K/mm3 MPV 9.7 (9.4-12.3) fl Neut % (Auto) 70.8 H (34.0-67.9) % Lymph % (Auto) 15.8 L (21.8-53.1) % [place] % (Auto) 8.6 (5.3-12.2) % Eos % (Auto) 2.8 (0.8-7.0) Baso % (Auto) 0.4 (0.1-1.2) % Neut # (Auto) 8.77 H (1.78-5.38) K/mm3 Lymph # (Auto) 1.96 (1.32-3.57) K/mm3 [place] # (Auto) 1.07 H (0.30-0.82) K/mm3 Eos # (Auto) 0.35 (0.04-0.54) K/mm3 Baso # (Auto) 0.05 (0.01-0.08) K/mm3 Sodium 138 (136-145) mEq/L Potassium 3.7 (3.5-5.1) mEq/L Chloride 100 (98-107) mEq/L Carbon Dioxide 27 (21-32) mEq/L Anion Gap 14.7 (5-15) BUN 13 (7-18) mg/dL Creatinine 0.9 (0.7-1.3) mg/dL Est Cr Clr Drug Dosing TNP Estimated GFR (MDRD) > 60 (>60) mL/min BUN/Creatinine Ratio 14.4 (14-18) Glucose 104 (74-106) mg/dL Calcium 9.2 (8.5-10.1) mg/dL Total Bilirubin 0.4 (0.2-1.0) mg/dL AST 19 (15-37) U/L ALT 49 (16-63) U/L Alkaline Phosphatase 114 (46-116) U/L C-Reactive Protein 3.3 H* (<1.0) mg/dL Total Protein 8.2 (6.4-8.2) g/dl Albumin 3.9 (3.4-5.0) g/dl Globulin 4.3 gm/dL Albumin/Globulin Ratio 0.9 L (1-2) Urine Color Yellow (Yellow) Urine Appearance Clear (Clear) Urine pH 6.0 (5.0-8.0) Ur Specific [place] > or = 1.030 (1.005-1.030) Urine Protein Negative (Negative) Urine Glucose (UA) Negative (Negative) Urine Ketones Negative (Negative) Urine Occult Blood Negative (Negative) Urine Nitrite Negative (Negative) Urine Bilirubin Negative (Negative) Urine Urobilinogen 0.2 (0.2-1.0) Ur Leukocyte Esterase Negative (Negative) - Re-Assessments/Exams Free Text/Narrative Re-Assessment/Exam: 07/09/19 06:00 His WBC was elevated at 12.4. His CRP was elevated at 3.3. His UA is negative. His influenza is negative. His strep was positive. 07/09/19 06:07 I will give him a shot of penicillin here. Departure - Departure Time of Disposition: 18:10 Disposition: Home, Self-Care 01 Condition: Good Clinical Impression: Strep tonsillitis, Scarlet fever - Discharge Information *PRESCRIPTION DRUG MONITORING PROGRAM REVIEWED*: Not Applicable *COPY OF PRESCRIPTION DRUG MONITORING REPORT IN PATIENT [place]: Not Applicable Referrals: Christopher Huang MD [Primary Care Provider] - 1 Week Forms: ED Department Discharge, ED Return to Work/School Form Additional Instructions: Take motrin or tylenol for pain or fever. Drink plenty of fluids. Please return if you are worse. Sepsis Event Note - Evaluation Sepsis Screening Result: No Definite Risk - Focused Exam Vital Signs: Vital Signs Temp Pulse Resp BP Pulse Ox 07/09/19 04:38 97.5 F 90 15 159/109 H 100 Date Exam was Performed: 07/09/19 Time Exam was Performed: 05:57 - My Orders Last 24 Hours: My Active Orders 07/09/19 04:48 Cardiac Monitoring [RC] . DIRECTED 07/09/19 04:50 STREP SCRN A RAPID W CULT CONF [RM] Stat 07/09/19 05:00 CBC WITH AUTO DIFF [HEME] Stat - Assessment/Plan Last 24 Hours: My Active Orders 07/09/19 04:48 Cardiac Monitoring [RC] . DIRECTED 07/09/19 04:50 STREP SCRN A RAPID W CULT CONF [RM] Stat 07/09/19 05:00 CBC WITH AUTO DIFF [HEME] Stat
[2019-07-09] MEDS ORDERED: Penicillin G Benzathine 1,200,000 Units/2 ML Syringe IM ONE (06:07)
== END 2019-07-09 06:20 | disposition home or self-care (01) ==
LOC: JD.ED 04:31
DX: J03.00 Acute streptococcal tonsillitis, unspecified (principal); A38.9 Scarlet fever, uncomplicated; I10 Essential (primary) hypertension; F42.9 Obsessive-compulsive disorder, unspecified; F90.9 Attention-deficit hyperactivity disorder, unspecified type; E66.9 Obesity, unspecified; Z79.899 Other long term (current) drug therapy
CPT/HCPCS: 36415; 80053; 81003; 85025; 86140; 87430; 87804; 96372; 99283; J0561

== ENCOUNTER 2019-12-12 14:29 | Emergency (ER) | payer SELFPAY ==
[2019-12-12] MEDS ORDERED: Sodium Chloride 0.9% 1,000 ML IV SCH (15:10)
--- NOTE | 2019-12-12 15:27 | EDM.PDOC ---
ED HPI GENERAL MEDICAL PROBLEM - General Chief Complaint: Gastrointestinal Problem Stated Complaint: [facility] Time Seen by Provider: 12/12/19 14:52 Source of Information: Reports: Patient, RN Notes Reviewed History Limitations: Reports: No Limitations - History of Present Illness INITIAL COMMENTS - FREE TEXT/NARRATIVE: Patient is a 34-year-old male who presents to the ED via [facility] today for the evaluation of a few different complaints. Patient notes for the last week or so, he has been having generalized abdominal pain, but points to his mid abdomen when asked where the pain is worse. He also states he says general malaise, has not had much energy to do much anything at all. He does note that he was outside today doing some work for a research project for school, when he bent over and felt his vision started getting blurry, he began to feel quite nauseated and felt like he was going to pass out. States he was trying to keep well hydrated; as it was pretty hot out. Patient also notes that for the past week or so, he has had just a "sour stomach". He thought maybe he was having issues with GERD, and he does take famotidine for this. He does not have a history of vertigo, but states that when he bent over the world felt like it was spinning around him, which would be vertigo-like. He further notes that positional changes seem to aggravate this. He did get Zofran in route to the ER by ambulance service. Patient notes that he has had a colonoscopy and EGD roughly 1 year ago, and they thought he may have had celiac disease, but apparently everything was normal, so they were questioning IBS. He was tried on some different medications for this, but is not on this any longer. He further denies any fevers or chills, cough/shortness of breath or any other sick-like symptoms he denies any urinary issues like dysuria frequency urgency. He states his bowel movements have been regular and he had his last bowel movement this morning. He does note that the pain kind of comes and goes in waves and he has not noted anything that really makes it better or worse. Headache Pain Score (Numeric/FACES): 3 Abdomen Pain Score (Numeric/FACES): 3 - Related Data Allergies Allergy/AdvReac Type Severity Reaction Status Date / Time No Known Allergies Allergy Verified 12/12/19 14:38 Home Meds: Home Meds PARoxetine HCL [Paxil] 20 mg PO DAILY 10/23/18 [History] Dextroamphetamine/Amphetamine [Adderall] 20 mg PO DAILY 07/09/19 [History] Ondansetron [Zofran ODT] 4 mg PO Q8H PRN #12 tab.dis 12/12/19 [Rx] Past Medical History HEENT History: Reports: Impaired Vision Other HEENT History: wears eyeglasses. Cardiovascular History: Reports: Hypertension, Other (See Below) Other Cardiovascular History: stress-induced ischemia Gastrointestinal History: Reports: Other (See Below) Other Gastrointestinal History: elevated CRP. 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 - Past Surgical History Head Surgeries/Procedures: Reports: Other (See Below) HEENT Surgical History: Reports: Naso-Sinus Surgery, Oral Surgery GI Surgical History: Reports: Colonoscopy, EGD Other Musculoskeletal Surgeries/Procedures:: fracture left hand Social & Family History - Tobacco Use Smoking Status *Q: Never Smoker - Caffeine Use Caffeine Use: Reports: Coffee, Energy Drinks - Recreational Drug Use Recreational Drug Use: No - Living Situation & Occupation Living situation: Reports: Single, with Significant Other (Fiance) Occupation: Employed ([employer]) ED ROS GENERAL - Review of Systems Review Of Systems: See Below Constitutional: Reports: Malaise (generalized x 1-2 weeks), Decreased Appetite. Denies: Fever, Chills Respiratory: Denies: Shortness of Breath, Cough Cardiovascular: Denies: Chest Pain GI/Abdominal: Reports: Abdominal Pain (generalized), Decreased Appetite, Nausea, Vomiting (1 episode). Denies: Black Stool, Bloody Stool, Constipation, Diarrhea : Denies: Dysuria, Frequency, Urgency Neurological: Reports: Dizziness (world spinning dizziness), Headache (generalized global headache) ED EXAM, GI/ABD - Physical Exam Exam: See Below Exam Limited By: No Limitations General Appearance: Alert, WD/WN, No Apparent Distress Eyes: Bilateral: Normal Appearance, EOMI Ears: Normal External Exam Nose: Normal Inspection Throat/Mouth: Normal Inspection, Normal Lips, Normal Teeth, Normal Gums, Normal Oropharynx, Normal Voice, No Airway Compromise Head: Atraumatic, Normocephalic Neck: Normal Inspection, Supple, Non-Tender, Full Range of Motion Respiratory/Chest: No Respiratory Distress, Lungs Clear, Normal Breath Sounds, No Accessory Muscle Use, Chest Non-Tender Cardiovascular: Normal Peripheral Pulses, Regular Rate, Rhythm, No Murmur GI/Abdominal Exam: Normal Bowel Sounds, Soft, No Distention, No Mass, Tender (judy umbilical and mainly over epigastrium) Extremities: Normal Inspection, Normal Capillary Refill Neurological: Alert, Oriented, Normal Cognition, No Motor/Sensory Deficits Psychiatric: Normal Affect, Normal Mood Skin Exam: Warm, Dry, Intact, Normal Color, No Rash Course - Vital Signs Last Recorded V/S: Last Vital Signs Temp 98.4 F 12/12/19 14:33 Pulse 112 H 12/12/19 14:33 Resp 12 12/12/19 14:33 BP 131/87 12/12/19 14:33 Pulse Ox 98 12/12/19 14:33 - Orders/Labs/Meds Orders: Active Orders 24 hr Category Date Time Status Sodium Chloride 0.9% [Normal Saline] 1,000 ml Med 12/12/19 15:10 Ordered IV ASDIRECTED Medication Orders Sodium Chloride (Normal Saline) 1,000 mls @ 999 mls/hr IV ASDIRECTED JOSR Last Admin: 12/12/19 15:30 Dose: 999 mls/hr Documented by: DANA Labs: Laboratory Tests 12/12/19 12/12/19 12/12/19 Range/Units 16:34 16:34 17:09 WBC 14.87 H (4.23-9.07) K/mm3 RBC 5.28 (4.63-6.08) M/mm3 Hgb 15.1 (13.7-17.5) gm/dl Hct 45.7 (40.1-51.0) % MCV 86.6 (79.0-92.2) fl MCH 28.6 (25.7-32.2) pg MCHC 33.0 (32.2-35.5) g/dl RDW Std Deviation 41.9 (35.1-43.9) fL Plt Count 367 H (163-337) K/mm3 MPV 10.2 (9.4-12.3) fl Neutrophils % (Manual) 84 H (40-60) % Band Neutrophils % 0 (0-10) % Lymphocytes % (Manual) 13 L (20-40) % Atypical Lymphs % 0 % Monocytes % (Manual) 3 (2-10) % Eosinophils % (Manual) 0 L (0.8-7.0) % Basophils % (Manual) 0 L (0.2-1.2) Platelet Estimate Adequate Plt Morphology Comment Normal RBC Morph Comment Normal Sodium 141 (136-145) mEq/L Potassium 4.1 (3.5-5.1) mEq/L Chloride 103 (98-107) mEq/L Carbon Dioxide 26 (21-32) mEq/L Anion Gap 16.1 H (5-15) BUN 17 (7-18) mg/dL Creatinine 1.3 (0.7-1.3) mg/dL Est Cr Clr Drug Dosing 87.88 mL/min Estimated GFR (MDRD) > 60 (>60) mL/min BUN/Creatinine Ratio 13.1 L (14-18) Glucose 90 (74-106) mg/dL Calcium 9.4 (8.5-10.1) mg/dL Total Bilirubin 0.5 (0.2-1.0) mg/dL AST 25 (15-37) U/L ALT 53 (16-63) U/L Alkaline Phosphatase 103 (46-116) U/L C-Reactive Protein 1.3 H* (<1.0) mg/dL Total Protein 8.1 (6.4-8.2) g/dl Albumin 4.2 (3.4-5.0) g/dl Globulin 3.9 gm/dL Albumin/Globulin Ratio 1.1 (1-2) Lipase 78 (73-393) U/L Urine Color Light yellow (Yellow) Urine Appearance Clear (Clear) Urine pH 7.0 (5.0-8.0) Ur Specific [place] 1.020 (1.005-1.030) Urine Protein Negative (Negative) Urine Glucose (UA) Negative (Negative) Urine Ketones Negative (Negative) Urine Occult Blood Trace-intact H (Negative) Urine Nitrite Negative (Negative) Urine Bilirubin Negative (Negative) Urine Urobilinogen 0.2 (0.2-1.0) Ur Leukocyte Esterase Negative (Negative) Urine RBC Not seen (0-5) /hpf Urine WBC 0-5 (0-5) /hpf Ur Squamous Epith Cells 5-10 H (0-5) /hpf Urine Bacteria Not seen (FEW) /hpf Urine Mucus Not seen (FEW) /hpf Meds: Medications Generic Name Dose Route Start Last Admin Trade Name Gregor PRN Reason Stop Dose Admin Sodium Chloride 1,000 mls @ 999 mls/hr 12/12/19 15:10 12/12/19 15:30 Normal Saline IV 999 mls/hr ASDIRECTED JOSR Administration Discontinued Medications Generic Name Dose Route Start Last Admin Trade Name Gregor PRN Reason Stop Dose Admin Al Hydroxide/Mg Hydroxide 30 0 ml 12/12/19 17:35 12/12/19 17:43 ml/ Lidocaine HCl 15 ml PO 12/12/19 17:36 45 ml ONETIME ONE Administration Diatrizoate Meglum/Diatrizoate Sod 90 ml 12/12/19 15:34 Gastrografin 37% PO 12/12/19 15:35 ONETIME ONE Famotidine 20 mg 12/12/19 17:35 12/12/19 17:42 Pepcid IVPUSH 12/12/19 17:36 20 mg ONETIME ONE Administration Iopamidol 100 ml 12/12/19 15:34 12/12/19 16:53 Isovue-300 (61%) IVPUSH 12/12/19 15:35 100 ml ONETIME ONE Administration Iopamidol 25 ml 12/12/19 15:34 12/12/19 16:53 Isovue-300 (61%) IVPUSH 12/12/19 15:35 25 ml ONETIME ONE Administration Sodium Chloride 10 ml 12/12/19 15:34 12/12/19 16:53 Saline Flush FLUSH 12/12/19 15:35 10 ml ONETIME ONE Administration - Re-Assessments/Exams Free Text/Narrative Re-Assessment/Exam: 12/12/19 15:35 Patient presents to the ED for evaluation of a few different complaints. We will get some labs, give him some fluids along with a abdomen pelvis CT for evaluation of his abdomen issues. 12/12/19 17:26 Laboratory evaluation demonstrates a mildly elevated white count of 14.8, with 84% neutrophils and no bands, which could be a stress reaction in nature, metabolic panel is within normal limits, CRP is mildly elevated at 1.3. Abdomen CT demonstrates no acute abnormalities. Patient might have a component of IBS in nature, but at this moment there are no other urgent considerations at today's visit. 12/12/19 17:37 Patient was reassessed at bedside, and states he still having quite a "sour stomach". Have ordered a GI cocktail and 20 mg IV famotidine for further management. Departure - Departure Time of Disposition: 17:44 Disposition: Home, Self-Care 01 Condition: Good Clinical Impression: Nausea Gastritis Qualifiers: Gastritis type: unspecified gastritis Chronicity: acute Gastritis bleeding: without bleeding Qualified Code(s): K29.00 - Acute gastritis without bleeding - Discharge Information *PRESCRIPTION DRUG MONITORING PROGRAM REVIEWED*: No *COPY OF PRESCRIPTION DRUG MONITORING REPORT IN PATIENT [place]: No Prescriptions: Ondansetron [Zofran ODT] 4 mg PO Q8H PRN #12 tab.dis PRN Reason: Nausea Instructions: Gastritis, Adult, [id number] Referrals: PCP,Unknown [Ordering Only Provider] - Forms: ED Department Discharge Additional Instructions: You were evaluated in the ER today regarding your abdominal issues. Laboratory evaluation demonstrated no acute worrisome abnormalities. Abdomen pelvis CT also showed no acute processes at today's visit. It is likely that you are still having stomach issues due to reflux, recommend you take Pepcid twice a day, to see if this does not help relieve some of the symptoms over the next week or so. Try to keep yourself well-hydrated, limit your time or exposure outside, as it is likely that you got overheated today, this might also be causing some of your issues. Regarding your hemorrhoids, you may use Preparation H, [id number] medication to provide relief. Recommend you follow-up with your primary care provider in the next week or 2 for re-examination and to make sure everything is getting better as expected. You were given a prescription for Zofran for antinausea medication, please take 1 tab every 8 hours as needed for further nausea. Please return to the ER at any time if your symptoms change or worsen. Sepsis Event Note (ED) - Evaluation Sepsis Screening Result: No Definite Risk - Focused Exam Vital Signs: Vital Signs Temp Pulse Resp BP Pulse Ox 12/12/19 14:33 98.4 F 112 H 12 131/87 98 - My Orders Last 24 Hours: My Active Orders 12/12/19 15:10 Sodium Chloride 0.9% [Normal Saline] 1,000 ml IV ASDIRECTED - Assessment/Plan Last 24 Hours: My Active Orders 12/12/19 15:10 Sodium Chloride 0.9% [Normal Saline] 1,000 ml IV ASDIRECTED
[2019-12-12] MEDS ORDERED: Iopamidol 612 MG/ML 50 ML SDV IVPUSH ONE (15:34)
[2019-12-12] MEDS ORDERED: Sodium Chloride 0.9% 10 ML Syringe FLUSH ONE (15:34)
[2019-12-12] MEDS ORDERED: Iopamidol 612 MG/ML 100 ML Bottle IVPUSH ONE (15:34)
[2019-12-12] MEDS ORDERED: Diatrizoate Meglumine/Diatrizoate Sodium 37% 120 ML Bottle PO ONE (15:34)
--- NOTE | 2019-12-12 17:15 | CT ---
CT abdomen and pelvis Technique: Multiple axial sections were obtained from above the dome of the diaphragm inferiorly through the pubic symphysis. Intravenous and oral contrast was utilized. Delayed images were obtained to the bladder. Findings: Visualized lung bases show nothing acute. Liver shows mild fatty infiltration. Minimal low density area within the mid spleen which is believed to be incidental due to its small size. Spleen size is normal. Adrenal glands show no nodule. Pancreas is within normal limits. Gallbladder contains no calcified gallstones. Pancreas appears within normal limits. Aorta shows no aneurysm. No retro-peritoneal adenopathy or mesenteric abnormalities are seen. No pelvic mass or adenopathy is seen. No free fluid or inflammatory change is appreciated. Appendix is seen and is normal in size. Bone window settings were reviewed which shows no acute osseous finding. Very minimal fat-containing umbilical hernia is noted. Delayed images shows contrast within the distal ureters and within the bladder. Impression: 1. Fatty infiltration within the liver. 2. Nothing acute is seen on CT study of the abdomen and pelvis. Diagnostic code #2 This report was dictated in MDT
[2019-12-12] MEDS ORDERED: Famotidine 20 MG/2 ML SDV IVPUSH ONE (17:35)
[2019-12-12] MEDS ORDERED: Alum Hydrox/Mag Hydrox/Simeth 30 ML, Lidocaine 2% 15 ML PO ONE ×2 (17:35)
[2019-12-12 18:37] VITALS: BP 126/88; PULSE 96
== END 2019-12-12 18:38 | disposition home or self-care (01) ==
LOC: JD.ED 14:29
DX: K29.00 Acute gastritis without bleeding (principal); I10 Essential (primary) hypertension; F90.9 Attention-deficit hyperactivity disorder, unspecified type; E66.9 Obesity, unspecified; Z68.41 Body mass index [BMI] 40.0-44.9, adult; Z79.899 Other long term (current) drug therapy
CPT/HCPCS: 36415; 74177; 80053; 81001; 83690; 85007; 85027; 86140; 96361; 96374; 99284; A9270; J3490; J7030; Q9967; 99283